=== PATIENT | female | born 1980 | race Caucasian/White ===

== ENCOUNTER 2016-12-11 09:15 | Emergency (ER) | payer OTHER ==
[2016-12-11 09:29] VITALS: BP 126/87; PULSE 64; TEMP 98.5; BMI 29.0
[2016-12-11] MEDS ORDERED: predniSONE 20 MG TABLET (UD) PO ONE (09:42)
[2016-12-11] MEDS ORDERED: diphenhydrAMINE HCL 25 MG CAPSULE (FP) PO ONE ×2 (09:42→09:47)
[2016-12-11] MEDS ORDERED: predniSONE 20 MG TABLET (UD) ONE (09:47)
--- NOTE | 2016-12-11 09:49 | PDOC ---
History of Present Illness - General Chief Complaint: Hives Stated Complaint: HIVES Time Seen by Provider: 12/11/16 09:25 History Source: Patient Exam Limitations: No Limitations - History of Present Illness Initial Comments: 12/11/16 09:43 36-year-old female presents to the ED with complaints of generalized hives over the past 2 days worsened today while she was at work. Patient states recent started a new job in the [employer] [facility] [place] but denies any history of allergies including cat or dog dander. Patient denies difficulty breathing, throat itchiness, or rash to face. Patient states has taken Benadryl with good effect but states symptoms return either later that day or the following day. Timing/Duration: reports: intermittent Severity: Yes: mild Location: reports: generalized Respiratory Risk Factors: reports: no cause identified Associated Symptoms: reports: rash Past History - Travel Traveled outside of the country in the last 30 days: No Close contact w/someone who was outside of country & ill: No - Past Medical History Allergies/Adverse Reactions: Allergies Allergy/AdvReac Type Severity Reaction Status Date / Time No Known Allergies Allergy Verified 12/11/16 09:23 Home Medications: Ambulatory Orders NK [No Known Home Medication] 12/11/16 Other medical history: denies - Surgical History Appendectomy: Yes - Psycho/Social/Smoking Cessation Hx Anxiety: No Suicidal Ideation: No Smoking History: Never smoked Have you smoked in the past 12 months: No Information on smoking cessation initiated: No Hx Alcohol Use: No Drug/Substance Use Hx: No Substance Use Type: None Patient Lives Alone: No Review of Systems - Review of Systems Able to Perform ROS?: Yes Constitutional: No: Symptoms Reported HEENTM: No: Throat Swelling, Difficulty Swallowing Respiratory: No: Cough, SOB at Rest, Stridor, Wheezing Integumentary: Yes: Pruritus, Rash Neurological: No: Symptoms reported *Physical Exam - Vital Signs Last Vital Signs Temp Pulse Resp BP Pulse Ox 98.5 F 64 20 126/87 99 12/11/16 09:18 12/11/16 09:18 12/11/16 09:18 12/11/16 09:18 12/11/16 09:18 - Physical Exam General Appearance: Yes: Nourished, Appropriately Dressed. No: Apparent Distress HEENT: positive: Pharynx Normal Neck: positive: Supple Respiratory/Chest: positive: Lungs Clear, Normal Breath Sounds. negative: Respiratory Distress, Accessory Muscle Use Cardiovascular: positive: Regular Rhythm, Regular Rate. negative: Murmur Gastrointestinal/Abdominal: positive: Soft Integumentary: positive: Hives, Rash (raised hives to torso and arms) Neurologic: positive: Motor Strength 5/5 (ambulatory) Medical Decision Making - Medical Decision Making 12/11/16 09:46 Patient with hives to torso and arms intermittently for the past few days after beginning a new job with [employer]. Patient states took Benadryl good effect. Patient on exam had hives to torso and upper extremities. Patient likely with allergic reaction secondary to contact exposure. Patient ordered for Benadryl prednisone and will be discharged home with the same. Patient recommended to keep a diary when symptoms are worse *DC/Admit/Observation/Transfer Diagnosis at time of Disposition: Allergic reaction Qualifiers: Encounter type: initial encounter Qualified Code(s): T78.40XA - Allergy, unspecified, initial encounter - Discharge Dispostion Disposition: HOME Condition at time of disposition: Good - Referrals Referrals: Michael Mauricio [Primary Care Provider] - - Patient Instructions Printed Discharge Instructions: DI for General Allergic Reactions Additional Instructions: Take medication as recommended starting the prednisone tomorrow since your given your first dose here in the ER. Next and please take Benadryl as needed but do not operate any heavy machinery while taking this. Please try to keep a diary of symptoms and triggers as discussed to pinpoint the exposure.
== END 2016-12-11 09:52 | disposition home or self-care (01) ==
LOC: JER 09:15
DX: L50.0 Allergic urticaria (principal)
CPT/HCPCS: 99281-25

== ENCOUNTER 2022-06-01 08:21 | Emergency (ER) | payer OTHER ==
[2022-06-01 08:28] VITALS: BP 104/65; PULSE 67; RESP 19; TEMP 98.1; BMI 31.8
[2022-06-01] MEDS ORDERED: METHOCARBAMOL 500 MG TABLET PO ONE (09:29)
[2022-06-01] MEDS ORDERED: LIDOCAINE 5% TOPICAL PATCH TP ONE (09:29)
[2022-06-01] MEDS ORDERED: KETOROLAC TROMETHAMINE 30 MG/1 ML VIAL IM ONE (09:29)
[2022-06-01] MEDS ORDERED: LIDOCAINE 5% TOPICAL PATCH ONE (09:32)
[2022-06-01] MEDS ORDERED: KETOROLAC TROMETHAMINE 30 MG/1 ML VIAL ONE (09:32)
[2022-06-01] MEDS ORDERED: METHOCARBAMOL 500 MG TABLET ONE (09:32)
== END 2022-06-01 11:56 | disposition home or self-care (01) ==
LOC: JERFT 08:21 → JER 08:21 → JERFT 11:56
PROC: 3E0233Z Introduction of Anti-inflammatory into Muscle, Percutaneous Approach (ICD-10-PCS; principal; 2022-06-01)
DX: S46.912A Strain of unspecified muscle, fascia and tendon at shoulder and upper arm level, left arm, initial encounter (principal); X50.3XXA Overexertion from repetitive movements, initial encounter
CPT/HCPCS: 71046-TC-FY; 73030-TC-LT-FY; 99284-25